=== PATIENT | male | born 1985 | race Caucasian/White ===

== ENCOUNTER 2016-11-02 19:48 | Emergency (ER) | payer OTHER ==
[~2016-11-02] VITALS: Ht 172.7 cm; Wt 112.6 kg
[2016-11-02] MEDS ORDERED: SODIUM CHLORIDE 0.9% 1,000ML IVBOLUS ONE (20:30)
[2016-11-02] MEDS ORDERED: ONDANSETRON 2MG/ML, 2ML IVPush ONE (20:30)
[2016-11-02] MEDS ORDERED: LORazepam 2 MG/ML, 1ML IVPush ONE (20:30)
[2016-11-02] MEDS ORDERED: MORPHINE SULFATE 4 MG/ML, 1ML IVPush PRN (20:30)
[2016-11-02 20:40] LABS: HEMATOCRIT 45.1 % (39.2-51.8); HEMOGLOBIN 15.1 g/dL (13.7-18.0); WHITE BLOOD COUNT 11.8 x10^3/uL (3.4-10)
[2016-11-02 20:51] LABS: BLOOD UREA NITROGEN 11 mg/dL (7-18)
[2016-11-02] MEDS ORDERED: LORazepam 2 MG/ML, 1ML ONE (20:52)
[2016-11-02] MEDS ORDERED: ONDANSETRON 2MG/ML, 2ML ONE (20:52)
[2016-11-02] MEDS ORDERED: DIHYDROERGOTAMINE 1 MG/ML, 1ML IM ONE (21:00)
[2016-11-02] MEDS ORDERED: MORPHINE SULFATE 4 MG/ML, 1ML ONE (21:56)
[2016-11-02 22:01] VITALS: BP 128/83
== END 2016-11-02 22:27 | disposition home or self-care (01) ==
LOC: ED 22:21
DX: G43.019 Migraine without aura, intractable, without status migrainosus (principal); G44.219 Episodic tension-type headache, not intractable
CPT/HCPCS: 36415; 70450; 80048; 82040; 85025; 85610; 93005; 96361; 96372; 96374; 96375; 99285; J1110; J2060; J2405; J7030